=== PATIENT | male | born 1945 | race Caucasian/White ===

== ENCOUNTER 2016-12-18 11:30 | Inpatient (IN) | payer MEDICARE, BC ==
[~2016-12-18] VITALS: Ht 177.8 cm; Wt 78.0 kg
[2016-12-25] VITALS (38 sets, daily range): BP systolic 102–147; BP diastolic 57–76; PULSE 56–98; RESP 11–20; Ht 177.8 cm; Wt 78.0 kg
[2016-12-25] MEDS ORDERED: ROCURONIUM 50 MG INJ ONE (07:00)
[2016-12-25] MEDS ORDERED: LIDOCAINE 2% (SDV) 5 ML INJ ONE (07:00)
[2016-12-25] MEDS ORDERED: PROPOFOL 200 MG INJ ONE (07:00)
[2016-12-25] MEDS ORDERED: SUCCINYLCHOLINE CHLORIDE 100 MG/5 ML SYG IV ONE (07:00)
[2016-12-25] MEDS ORDERED: SURGIFOAM POWDER 1 GM KIT ONE (09:48)
[2016-12-25] MEDS ORDERED: BUPIVACAINE 0.25% (MPF) 30 ML INJ ONE (09:48)
[2016-12-25] MEDS ORDERED: POLYMYXIN/BACITRACIN 1L IRRIG ONE ×2 (09:48→11:13)
[2016-12-25] MEDS ORDERED: THROMBIN 5000 UNIT VIAL ONE ×2 (09:48→12:49)
[2016-12-25] MEDS ORDERED: ESOM20CA PO (10:06)
[2016-12-25] MEDS ORDERED: MORP15TA92 PO (10:06)
[2016-12-25] MEDS ORDERED: BIMA2.5D BOTH EYES (10:07)
[2016-12-25] MEDS ORDERED: CALC500T11 PO (10:08)
[2016-12-25] MEDS ORDERED: OMEG1CAP31 PO (10:08)
[2016-12-25] MEDS ORDERED: ALFU10TA2 PO (10:09)
--- NOTE | 2016-12-25 10:18 | HPN ---
Date/Time of Note Date/Time of Note DATE: 12/25/16 TIME: 10:18 Interval H&P Admission Note Pt. seen H&P reviewed: No system changes SAMANTHA MATTHEWS PA-C Dec 25, 2016 10:18
[2016-12-25] MEDS ORDERED: DIPHENHYDRAMINE 50 MG INJ IV PRN ×2 (10:30→15:00)
[2016-12-25] MEDS ORDERED: ZOLPIDEM 5 MG TAB PO PRN (10:30)
[2016-12-25] MEDS ORDERED: morphine 1 MG/ML 30 ML (PCA) IV SCH (10:30)
[2016-12-25] MEDS ORDERED: ONDANSETRON 4 MG INJ IV PRN ×2 (10:30→15:00)
[2016-12-25] MEDS ORDERED: morphine 2 MG INJ IV PRN (10:30)
[2016-12-25] MEDS ORDERED: ACETAMINOPHEN 325 MG TAB PO PRN (10:30)
[2016-12-25] MEDS ORDERED: NALOXONE (0.4 MG/ML) INJ IV PRN (10:30)
[2016-12-25] MEDS ORDERED: CEPASTAT LOZENGE MT PRN (10:30)
[2016-12-25] MEDS ORDERED: BISACODYL 10 MG SUPP PR PRN (10:30)
[2016-12-25] MEDS ORDERED: AL HYDROX/MG HYDROX/SIMETH 30 ML CUP PO PRN (10:30)
[2016-12-25] MEDS ORDERED: HEPARIN 1000 UNITS/ML 10 ML INJ ONE (10:46)
[2016-12-25] MEDS ORDERED: CEFAZOLIN 1 GM INJ ONE ×2 (10:47→11:21)
[2016-12-25] MEDS ORDERED: MIDAZOLAM 1 MG/ML 2 ML INJ ONE (11:05)
[2016-12-25] MEDS: CEFAZOLIN 1 GM/50 ML (PMX) 50 ML IVPB SCH ×2 (11:15→18:39)
[2016-12-25] MEDS ORDERED: BUPIVACAINE 0.25%/EPI (SDV) 30 ML INJ ONE (11:24)
[2016-12-25] MEDS ORDERED: FAMOTIDINE 20 MG INJ ONE (11:39)
[2016-12-25] MEDS ORDERED: ONDANSETRON 4 MG INJ ONE (11:39)
[2016-12-25] MEDS ORDERED: DEXAMETHASONE 4 MG/ML 1 ML INJ ONE (11:39)
[2016-12-25] MEDS ORDERED: BUPIVACAINE 0.25%/EPI (SDV) 30 ML INJ INJ ONE (11:49)
[2016-12-25] MEDS ORDERED: POLYMYXIN/BACITRACIN 1L IRRIG IRR ONE (11:49)
[2016-12-25] MEDS ORDERED: THROMBIN 5000 UNIT VIAL TOP ONE (11:49)
[2016-12-25] MEDS ORDERED: GELATIN SIZE 100 SPONGE ONE (12:48)
--- NOTE | 2016-12-25 13:15 | RADRPT ---
PROCEDURE: Intraoperative fluoroscopy CLINICAL INDICATION: L3-S1 decompression TECHNIQUE: Two fluoroscopic images of the lumbar spine were obtained by the operating surgeon. To con fluoroscopic time: 7.6 seconds COMPARISON: None. FINDINGS: Two lateral views of the lower lumbar spine obtained in the operating room are provided. Assuming t here are 5 mobile lumbar-type vertebra, instruments overlie the posterior elements at L4 and L5. Th ere are degenerative changes. IMPRESSION: Intraoperative fluoroscopy, as described. RPTAT: HCTS Physician Estrella Date Time Electronically viewed and signed by Physician Estrella on 12/25/2016 13:14 CS/
[2016-12-25] MEDS: morphine (ER) 30 MG TAB PO SCH ×2 (14:00→20:52)
[2016-12-25] MEDS ORDERED: ACETAMINOPHEN 1000MG/100ML IV 100 ML ONE (14:37)
[2016-12-25] MEDS ORDERED: SUGAMMADEX SODIUM 200 MG/2 ML VIAL IV ONE (14:37)
--- NOTE | 2016-12-25 14:53 | OPR ---
Date/Time of Note Date/Time of Note DATE: 12/25/16 TIME: 14:51 Operative Report Preoperative Diagnosis Lumbar stenosis Postoperative Diagnosis Lumbar stenosis Operation/Procedure Performed Multilevel lumbar decompression Co-Surgeon: ALVINA AGEE MD assistant technician: SAMANTHA MATTHEWS PA-C Anesthesia Type: general Estimated Blood Loss: 150 - 200 ml's Transfusion Required: no Specimens Disc Grafts/Implants: none Complications: no ALVINA AGEE MD Dec 25, 2016 14:53
[2016-12-25] MEDS ORDERED: METOCLOPRAMIDE 10 MG INJ IV PRN (15:00)
[2016-12-25] MEDS ORDERED: MEPERIDINE 25 MG INJ IV PRN (15:00)
[2016-12-25] MEDS ORDERED: hydrALAzine 20 MG INJ IV PRN (15:00)
[2016-12-25] MEDS ORDERED: HYDROmorphONE (0.2 MG/ML) 10ML SYG IV PRN ×2 (15:00)
[2016-12-25] MEDS: morphine 1 MG/ML 30 ML (PCA) IV SCH (15:26)
[2016-12-25] MEDS: PANTOPRAZOLE (EC) 40 MG TAB PO SCH (18:39)
[2016-12-25] MEDS: D5W-0.45 NACL + KCL 20 MEQ 1,000 ML IV SCH ×2 (18:39→20:53)
[2016-12-25] MEDS: CYCLOBENZAPRINE 10 MG TAB PO PRN (20:52)
[2016-12-25] MEDS: DOCUSATE SODIUM 100 MG CAP PO SCH (20:52)
[2016-12-25] MEDS: LATANOPROST 0.005% 2.5 ML OPH BOTH EYES SCH (21:00)
[2016-12-26 00:15] VITALS: BP 109/58; RESP 18
--- NOTE | 2016-12-26 01:22 | CONS ---
DATE OF ADMISSION: 12/25/2016 DATE OF CONSULTATION: 12/25/2016 Postop medical consultative note Thank you very much, Dr. Mars, for allowing me to evaluate the above patient, this 71-year-old male, who underwent lumbar decompression and diskectomy revision earlier today. Historical events: As you well know, this patient did undergo a lumbar back surgery in May 2015 but because of recurrence of pain and related sciatica, left greater than right lower extremity, elected to proceed with surgical intervention. Of note is also he had symptoms compatible with cauda equina syndrome. Presently in recovery he is comfortable without cough, wheezing, shortness of breath, nausea, vomiting, abdominal or chest pain. PAST MEDICAL HISTORY: Includes: 1. Mae's esophagus. 2. History of thrombocytopenia. 3. Hyperlipidemia. 4. GERD. 5. History of mitral valve prolapse. 6. History of glucose intolerance. 7. 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 8. History of BPH. 9. Erectile dysfunction. MEDICATION: 1. Morphine release 1 tablet t.i.d. 2. Alfuzosin ER 10 mg per day. 3. MiraLAX daily. 4. Zometa every 3 months. 5. Cialis 5 mg p.r.n. 6. Fish oil 1 cap t.i.d. 7. Calcium with D daily. 8. Nexium 40 mg per day. ALLERGIES: BACTRIM. 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 Has 4 adult children. Lives in [place]. Prior smoker. Drinks a beer a day. PHYSICAL EXAMINATION: GENERAL APPEARANCE: [place] male no acute distress. VITAL SIGNS: BP 122/80, pulse 70, respirations of 20. He was afebrile. HEENT: Eyes, extraocular muscles were full. Nose, mouth, and throat, normal. NECK: Supple. There was no jugular venous distention, thyroid enlargement, adenopathy. Carotids 2+. No bruits. LUNGS: Clear. HEART: Rhythm regular. No murmur. No 3rd or 4th sound. ABDOMEN: Nontender. Liver and spleen were not palpable. No mass or tenderness were noted. EXTREMITIES: No edema. Calves nontender. Pulses 2+. NEUROLOGIC: No lateralizing motor weakness. IMPRESSION: 1. Stable postop lumbar back surgery. 2. History of myeloma, doing well post stem cell transplant. 3. History of gastroesophageal reflux disease, will continue PPI. 4. Prostatism. Will not resume Alfuzosin until catheter removed. 5. Will follow with you daily and observe for signs and symptoms of thromboembolic disease. Dictated By: El Armas MD /agustin/anais /Document#: [id number]
[2016-12-26] MEDS: CEFAZOLIN 1 GM/50 ML (PMX) 50 ML IVPB SCH (02:09)
[2016-12-26] MEDS: PANTOPRAZOLE (EC) 40 MG TAB PO SCH (05:06)
[2016-12-26] MEDS: morphine (ER) 30 MG TAB PO SCH ×3 (05:07→21:32)
[2016-12-26 05:37] LABS: BASOPHILS % 0.1 % (0.0-2.0); HEMATOCRIT 31.4 % (42.0-52.0); HEMOGLOBIN 10.5 g/dl (14.0-18.0); LYMPHOCYTES # 0.9 10^3/ul (0.8-2.9); LYMPHOCYTES % 11.4 % (15.0-51.0); MEAN CORPUSCULAR HEMOGLOBIN 32.2 pg (29.0-33.0); MEAN CORPUSCULAR HGB CONC 33.4 g/dl (32.0-37.0); MEAN CORPUSCULAR VOLUME 96.3 fl (82.0-101.0); MONOCYTE # 0.5 10^3/ul (0.3-0.9); MONOCYTES % 5.6 % (0.0-11.0); NEUTROPHILS % 82.4 % (39.0-77.0); PLATELET COUNT 131 10^3/UL (140-415); RED BLOOD COUNT 3.26 10^6/ul (4.70-6.10); RED CELL DISTRIBUTION WIDTH 12.9 % (11.5-14.5); WHITE BLOOD COUNT 8.2 10^3/ul (4.8-10.8)
[2016-12-26 05:55] LABS: CALCIUM 8.5 mg/dl (8.4-10.2); CREATININE 0.73 mg/dl (0.61-1.24)
[2016-12-26 07:37] VITALS: BP 110/57; RESP 18
--- NOTE | 2016-12-26 08:23 | CONS ---
Date/Time of Note Date/Time of Note DATE: 12/26/16 TIME: 08:20 Assessment/Plan Assessment/Plan Additional Assessment/Plan 1. The patient is doing well postop lumbar laminectomy. 2. Patient has history of GERD he is presently asymptomatic. 3. Patient has history of myeloma this is quiescent and a slight reduction in platelet count is noted, with patient having history of the same. 4. History of BPH will observe for difficulty voiding once Mock catheter is removed. 5. Laboratory studies were reviewed. Consultation Date/Type/Reason Admit Date/Time Dec 25, 2016 at 08:33 Initial Consult Date 24 HR Interval Summary Free Text/Dictation The patient has noted only mild low back pain without radicular leg pain. He denies cough shortness of breath chest pain nausea vomiting or abdominal pain. He has he has minimal discomfort from needed Mock catheter. Exam/Review of Systems Vital Signs Vitals Vital Signs Date Time Temp Pulse Resp B/P Pulse Ox O2 Delivery O2 Flow Rate FiO2 12/26/16 07:37 98.1 62 18 110/57 100 12/25/16 23:59 Nasal Cannula 12/25/16 15:50 2.0 Intake and Output 12/25/16 12/25/16 12/26/16 15:00 23:00 07:00 Intake Total 2120 ml 750 ml Output Total 615 ml 2020 ml Balance 1505 ml -1270 ml Exam Neck: No jvd Respiratory: clear to auscultation Cardiovascular: regular rate and rhythm Gastrointestinal: soft Extremities: No edema, No tenderness (bilateral) Results Result Diagram: 12/26/16 0453 12/26/16 0454 Results 24 hrs Laboratory Tests Test 12/26/16 04:53 12/26/16 04:54 White Blood Count 8.2 Red Blood Count 3.26 L Hemoglobin 10.5 L Hematocrit 31.4 L Mean Corpuscular Volume 96.3 Mean Corpuscular Hemoglobin 32.2 Mean Corpuscular Hemoglobin Concent 33.4 Red Cell Distribution Width 12.9 Platelet Count 131 L Mean Platelet Volume 10.0 Neutrophils % 82.4 H Lymphocytes % 11.4 L Monocytes % 5.6 Eosinophils % 0.0 Basophils % 0.1 Nucleated Red Blood Cells % 0.0 Neutrophils # (Manual) 6.8 Lymphocytes # 0.9 Monocytes # 0.5 Eosinophils # 0.0 Basophils # 0.0 Nucleated Red Blood Cells # 0.0 Sodium Level 137 Potassium Level 4.0 Chloride Level 108 Carbon Dioxide Level 25 Anion Gap 8 Blood Urea Nitrogen 11 Creatinine 0.73 Glucose Level 120 Calcium Level 8.5 Magnesium Level 2.0 Medications Medications Current Medications Potassium Chloride/Dextrose/ Sod Cl (D5-1/2ns + KCl 20 Meq) 1,000 ml @ 100 mls/ hr Q10H IV Last administered on 12/25/16 20:53; Admin Dose 100 MLS/HR; Start 12/25/16 at 10:18 Morphine Sulfate (morphine) 1 mg Q1H PRN IV BREAKTHROUGH PAIN; Start 12/25/16 at 10:30 Ondansetron HCl (Zofran Inj) 4 mg Q6H PRN IV NAUSEA AND/OR VOMITING; Start at 10:30 Bisacodyl (Dulcolax Supp) 10 mg DAILY PRN OR CONSTIPATION; Start 12/25/16 at 10 :30 Docusate Sodium (Colace) 100 mg BID PO Last administered on 12/25/16 20:52; Admin Dose 100 MG; Start 12/25/16 at 21:00 Al Hydrox/Mg Hydrox/Simethicone (Mag-Al Plus) 15 ml Q6H PRN PO CONSTIPATION/ DYSPEPSIA; Start 12/25/16 at 10:30 Acetaminophen (Tylenol Tab) 650 mg Q4H PRN PO TUTTLE OR TEMP GREATER THAN 101.3F; Start 12/25/16 at 10:30 Cyclobenzaprine HCl (Flexeril) 10 mg TID PRN PO MUSCLE SPASMS Last administered on 12/25/16 20:52; Admin Dose 10 MG; Start 12/25/16 at 10:30 Phenol (Cepastat Lozenge) 1 lozenge PRN PRN MT SORE THROAT; Start 12/25/16 at 10:30 Diphenhydramine HCl (Benadryl) 25 mg Q6H PRN IV ITCHING; Start 12/25/16 at 10: 30 Naloxone HCl (Narcan) 0.2 mg Q2M PRN IV RR 8 BREATHS/MIN OR LESS; Start at 10:30 Miscellaneous Information 1. Hold ADMINISTRATIVE OFFICER at 1,000... ADMINISTRATIVE OFFICER IV ; Start 12/25/16 at 10: 30 Morphine Sulfate (morphine) ADMINISTRATIVE OFFICER to be started in PACU Q4PCA IV Last administered on 12/25/16 15:26; Admin Dose 30 MG; Start 12/25/16 at 10:30; Stop 12/26/16 at 10:00 Morphine Sulfate (Ms Contin (Er)) 30 mg Q8 PO Last administered on 12/26/16 05 :07; Admin Dose 30 MG; Start 12/25/16 at 14:00 Latanoprost (Xalatan) 1 drop QHS BOTH EYES ; Start 12/25/16 at 21:00 Calcium Carbonate (Oyster Shell Calcium) 1.25 gm DAILY PO ; Start 12/26/16 at 09 :00 Pantoprazole (Protonix Tab) 40 mg DAILY@06 PO Last administered on 12/26/16 05 :06; Admin Dose 40 MG; Start 12/25/16 at 18:00 Polyethylene Glycol (Miralax) 17 gm DAILY PO ; Start 12/26/16 at 09:00 XENIA GUAN MD Dec 26, 2016 08:23
[2016-12-26] MEDS: DOCUSATE SODIUM 100 MG CAP PO SCH ×2 (08:39→21:32)
[2016-12-26] MEDS: CALCIUM CARBONATE 1.25 GM TAB PO SCH (08:39)
[2016-12-26] MEDS: POLYETHYLENE GLYCOL 17 GM PACKET PO SCH (08:39)
[2016-12-26] MEDS: D5W-0.45 NACL + KCL 20 MEQ 1,000 ML IV SCH ×2 (08:40→18:25)
[2016-12-26] MEDS: morphine 1 MG/ML 30 ML (PCA) IV SCH (09:50)
--- NOTE | 2016-12-26 11:37 | PN ---
Date/Time of Note Date/Time of Note DATE: 12/26/16 TIME: 11:36 Assessment/Plan Lines/Catheters IV Catheter Type (from Nrsg): Peripheral IV Mock in Place (from Nrsg): Yes Assessment/Plan Assessment/Plan pod #1 s/p revision lumbar decompression cont current protocol Subjective 24 Hr Interval Summary improved leg pain Exam/Review of Systems Vital Signs Vitals Vital Signs Date Time Temp Pulse Resp B/P Pulse Ox O2 Delivery O2 Flow Rate FiO2 12/26/16 08:00 Nasal Cannula 12/26/16 07:37 98.1 62 18 110/57 100 12/25/16 15:50 2.0 Intake and Output 12/25/16 12/25/16 12/26/16 15:00 23:00 07:00 Intake Total 2120 ml 750 ml Output Total 615 ml 2020 ml Balance 1505 ml -1270 ml Exam Free Text/Dictation neuro intact Results Result Diagram: 12/26/16 0453 12/26/16 0454 ALVINA AGEE MD Dec 26, 2016 11:37
[2016-12-26] MEDS: CYCLOBENZAPRINE 10 MG TAB PO PRN (16:20)
[2016-12-26 16:42] VITALS: BP 131/62; RESP 18
[2016-12-26 20:29] VITALS: BP 119/60; RESP 20
[2016-12-26] MEDS: LATANOPROST 0.005% 2.5 ML OPH BOTH EYES SCH (22:38)
[2016-12-27] MEDS: CYCLOBENZAPRINE 10 MG TAB PO PRN (00:28)
[2016-12-27] MEDS: D5W-0.45 NACL + KCL 20 MEQ 1,000 ML IV SCH ×2 (02:18→05:50)
[2016-12-27 02:52] VITALS: BP 110/60; RESP 20
[2016-12-27 05:20] LABS: BASOPHILS % 0.3 % (0.0-2.0); EOSINOPHILS % 0.1 % (0.0-7.0); HEMATOCRIT 32.4 % (42.0-52.0); HEMOGLOBIN 10.6 g/dl (14.0-18.0); LYMPHOCYTES # 1.3 10^3/ul (0.8-2.9); MEAN CORPUSCULAR HEMOGLOBIN 32.4 pg (29.0-33.0); MEAN CORPUSCULAR HGB CONC 32.7 g/dl (32.0-37.0); MEAN CORPUSCULAR VOLUME 99.1 fl (82.0-101.0); MEAN PLATELET VOLUME 9.7 fl (7.4-10.4); MONOCYTE # 0.6 10^3/ul (0.3-0.9); MONOCYTES % 7.1 % (0.0-11.0); NEUTROPHILS % 75.1 % (39.0-77.0); PLATELET COUNT 131 10^3/UL (140-415); RED BLOOD COUNT 3.27 10^6/ul (4.70-6.10); RED CELL DISTRIBUTION WIDTH 13.4 % (11.5-14.5); WHITE BLOOD COUNT 7.7 10^3/ul (4.8-10.8)
[2016-12-27 05:32] LABS: CALCIUM 8.2 mg/dl (8.4-10.2); CREATININE 0.76 mg/dl (0.61-1.24); MAGNESIUM 1.9 mg/dl (1.7-2.5); POTASSIUM 4.6 mmol/L (3.5-5.1)
[2016-12-27] MEDS: morphine (ER) 30 MG TAB PO SCH ×2 (05:51→14:05)
[2016-12-27] MEDS: PANTOPRAZOLE (EC) 40 MG TAB PO SCH (05:51)
--- NOTE | 2016-12-27 07:52 | CONS ---
Date/Time of Note Date/Time of Note DATE: 12/27/16 TIME: 07:49 Assessment/Plan Assessment/Plan Additional Assessment/Plan 1. The patient is doing well postop lumbar laminectomy. 2. Patient has history of GERD he is presently asymptomatic. 3. History of BPH will observe for difficulty voiding once Gurrola catheter is removed. 4. Laboratory studies were reviewed and rev with ortho, re:removing today and potential dc Consultation Date/Type/Reason Admit Date/Time Dec 25, 2016 at 08:33 Detailed Summary Respiratory: No shortness of breath Cardiovascular: No chest pain, No lightheadedness Gastrointestinal: no complaints Genitourinary: other (gurrola in place) Musculoskeletal: back pain (is mild ) Exam/Review of Systems Vital Signs Vitals Vital Signs Date Time Temp Pulse Resp B/P Pulse Ox O2 Delivery O2 Flow Rate FiO2 12/27/16 02:52 99.2 96 20 110/60 93 12/26/16 20:00 Nasal Cannula 2.0 Intake and Output 12/26/16 12/26/16 12/27/16 15:00 23:00 07:00 Intake Total 1000 ml 2080 ml 950 ml Output Total 1515 ml 5 ml Balance 1000 ml 565 ml 945 ml Exam Neck: No jvd Respiratory: clear to auscultation Cardiovascular: regular rate and rhythm Gastrointestinal: soft Extremities: No edema (and no calf tend bilat) Results Result Diagram: 12/27/16 0438 12/27/16 0438 Results 24 hrs Laboratory Tests Test 12/27/16 04:38 White Blood Count 7.7 Red Blood Count 3.27 L Hemoglobin 10.6 L Hematocrit 32.4 L Mean Corpuscular Volume 99.1 Mean Corpuscular Hemoglobin 32.4 Mean Corpuscular Hemoglobin Concent 32.7 Red Cell Distribution Width 13.4 Platelet Count 131 L Mean Platelet Volume 9.7 Neutrophils % 75.1 Lymphocytes % 17.0 Monocytes % 7.1 Eosinophils % 0.1 Basophils % 0.3 Nucleated Red Blood Cells % 0.0 Neutrophils # (Manual) 5.8 Lymphocytes # 1.3 Monocytes # 0.6 Eosinophils # 0.0 Basophils # 0.0 Nucleated Red Blood Cells # 0.0 Sodium Level 136 Potassium Level 4.6 Chloride Level 99 Carbon Dioxide Level 29 Anion Gap 13 Blood Urea Nitrogen 12 Creatinine 0.76 Glucose Level 115 Calcium Level 8.2 L Magnesium Level 1.9 Medications Medications Current Medications Potassium Chloride/Dextrose/ Sod Cl (D5-1/2ns + KCl 20 Meq) 1,000 ml @ 100 mls/ hr Q10H IV Last administered on 12/27/16 05:50; Admin Dose 100 MLS/HR; Start 12/25/16 at 10:18 Morphine Sulfate (morphine) 1 mg Q1H PRN IV BREAKTHROUGH PAIN; Start 12/25/16 at 10:30 Ondansetron HCl (Zofran Inj) 4 mg Q6H PRN IV NAUSEA AND/OR VOMITING; Start at 10:30 Bisacodyl (Dulcolax Supp) 10 mg DAILY PRN SD CONSTIPATION; Start 12/25/16 at 10 :30 Docusate Sodium (Colace) 100 mg BID PO Last administered on 12/26/16 21:32; Admin Dose 100 MG; Start 12/25/16 at 21:00 Al Hydrox/Mg Hydrox/Simethicone (Mag-Al Plus) 15 ml Q6H PRN PO CONSTIPATION/ DYSPEPSIA; Start 12/25/16 at 10:30 Acetaminophen (Tylenol Tab) 650 mg Q4H PRN PO TUTTLE OR TEMP GREATER THAN 101.3F; Start 12/25/16 at 10:30 Cyclobenzaprine HCl (Flexeril) 10 mg TID PRN PO MUSCLE SPASMS Last administered on 12/27/16 00:28; Admin Dose 10 MG; Start 12/25/16 at 10:30 Phenol (Cepastat Lozenge) 1 lozenge PRN PRN MT SORE THROAT; Start 12/25/16 at 10:30 Diphenhydramine HCl (Benadryl) 25 mg Q6H PRN IV ITCHING; Start 12/25/16 at 10: 30 Naloxone HCl (Narcan) 0.2 mg Q2M PRN IV RR 8 BREATHS/MIN OR LESS; Start at 10:30 Miscellaneous Information 1. Hold HOME HEALTH NURSE LICENSED PRACTICAL at 1,000... HOME HEALTH NURSE LICENSED PRACTICAL IV ; Start 12/25/16 at 10: 30 Morphine Sulfate (Ms Contin (Er)) 30 mg Q8 PO Last administered on 12/27/16 05 :51; Admin Dose 30 MG; Start 12/25/16 at 14:00 Latanoprost (Xalatan) 1 drop QHS BOTH EYES Last administered on 12/26/16 22:38 ; Admin Dose 1 DROP; Start 12/25/16 at 21:00 Calcium Carbonate (Oyster Shell Calcium) 1.25 gm DAILY PO Last administered on 12/26/16 08:39; Admin Dose 1.25 GM; Start 12/26/16 at 09:00 Pantoprazole (Protonix Tab) 40 mg DAILY@06 PO Last administered on 12/27/16 05 :51; Admin Dose 40 MG; Start 12/25/16 at 18:00 Polyethylene Glycol (Miralax) 17 gm DAILY PO Last administered on 12/26/16 08: 39; Admin Dose 17 GM; Start 12/26/16 at 09:00 XENIA GUAN MD Dec 27, 2016 07:52
--- NOTE | 2016-12-27 07:58 | PN ---
Date/Time of Note Date/Time of Note DATE: 12/27/16 TIME: 07:57 Assessment/Plan Lines/Catheters IV Catheter Type (from Nrsg): Peripheral IV Mock in Place (from Nrsg): Yes Assessment/Plan Assessment/Plan The patient is postoperative day 2 status post lumbar decompression. He is doing well. His catheter and ENGINE MANAGER will be discontinued today. If he is able to void he will be discharged today. Subjective 24 Hr Interval Summary The patient is doing well with minimal back pain Exam/Review of Systems Vital Signs Vitals Vital Signs Date Time Temp Pulse Resp B/P Pulse Ox O2 Delivery O2 Flow Rate FiO2 12/27/16 02:52 99.2 96 20 110/60 93 12/26/16 20:00 Nasal Cannula 2.0 Intake and Output 12/26/16 12/26/16 12/27/16 15:00 23:00 07:00 Intake Total 1000 ml 2080 ml 950 ml Output Total 1515 ml 5 ml Balance 1000 ml 565 ml 945 ml Exam Free Text/Dictation Incisions are clean and dry. He is neurologically intact. Results Result Diagram: 12/27/16 0438 12/27/16 0438 ALVINA AGEE MD Dec 27, 2016 07:58
[2016-12-27 08:06] VITALS: BP 115/57; RESP 18
[2016-12-27] MEDS: DOCUSATE SODIUM 100 MG CAP PO SCH (09:17)
[2016-12-27] MEDS: CALCIUM CARBONATE 1.25 GM TAB PO SCH (09:17)
[2016-12-27] MEDS: POLYETHYLENE GLYCOL 17 GM PACKET PO SCH (09:17)
[2016-12-27 14:57] VITALS: BP 117/62; RESP 18
--- NOTE | 2016-12-28 09:12 | DS ---
Date/Time of Note Date/Time of Note DATE: 12/28/16 TIME: 09:11 Discharge Summary Admission/Discharge Info Admit Date/Time Dec 25, 2016 at 08:33 Discharge Date/Time Dec 27, 2016 at 16:30 Discharge Diagnosis Status post lumbar decompression Patient Condition: Good Procedures Lumbar decompression Hx of Present Illness Back and leg pain. History of previous spinal surgery. Residual spinal stenosis Hospital Course The patient was admitted to the orthopedic young after undergoing lumbar revision decompression. His postoperative course was uncomplicated. By postoperative day 2 he was deemed stable for discharge with follow-up arranged with the undersigned Home Meds Reported Medications Alfuzosin Hcl* (Alfuzosin Hcl*) 10 Mg Tab.er.24h, 10 MG PO DAILY, #30 TAB.SA 12/25/16 [place]-3/Dha/Epa/Fish Oil (FISH OIL 1,000 MG SOFTGEL) 1 Each Capsule, 1 EACH PO DAILY, CAP 12/25/16 Calcium Carbonate (Oysco-500) 500 Mg Tablet, 500 MG PO DAILY, TAB 12/25/16 Bimatoprost* (Lumigan*) 0.01%-2.5 Ml Opht Drops, 1 DROP BOTH EYES HS, EA 12/25/16 Esomeprazole Mag Trihydrate (Nexium) 20 Mg Capsule.dr, 20 MG PO DAILY, #30 CAP 12/25/16 Morphine Sulfate* (Ms Contin*) 15 Mg Tablet.sa, 30 MG PO TID Y for PAIN, TAB.SA 12/25/16 Primary Care Provider Not On Staff Doctor ALVINA AGEE MD Dec 28, 2016 09:12
--- NOTE | 2017-01-02 14:30 | OPR ---
DATE OF OPERATION: 12/25/2016 PREOPERATIVE DIAGNOSES: 1. Previous L3-4, L4-5, L5-S1 decompression with residual stenosis at L3-4, L4-5, L5-S1. 2. Left L3-4 disc extrusion. 3. Radiculopathy. POSTOPERATIVE DIAGNOSES: 1. Previous L3-4, L4-5, L5-S1 decompression with residual stenosis at L3-4, L4-5, L5-S1. 2. Left L3-4 disc extrusion. 3. Radiculopathy. 4. Left pars fracture at L3. PROCEDURES: 1. Revision decompression L3-4 and L4-5 bilaterally and L5-S1 on the left for stenosis. 2. Left L3-4 microdiskectomy. 3. Use of operative microscope. 4. Use of C-arm fluoroscopy with interpretation without radiologist present. 5. Intraoperative neuro monitoring (3 hours). 6. Deep specimen sent for cultures. PRIMARY SURGEON: Dr. Yovany Mars. WIRE ROPE FABRICATION SUPERVISOR: Sangita Ramirez PA-C. NEED FOR LEGISLATIVE DIRECTOR: Senior Information Systems Architect was required for retraction of neurovascular elements. FINDINGS: Neuro monitoring at the start of the case revealed left L3 amplitude down 40 percent, left L4 amplitude down 30 percent, left L5 amplitude down 20 percent ,left S1 amplitude down 50 percent, right L5 amplitude down 40 percent, right S1 amplitude down 20 percent. At the end of the case nerve signal returned to normal. The patient had severe residual stenosis at L3-4, L4-5, and L5-S1 on the left with disc herniation at L3-4. Fluid collection is identified and sent off for cultures. ESTIMATED BLOOD LOSS: 150 cc. DRAINS: None. SPECIMEN: Disc. COMPLICATIONS TO PROCEDURE: None. ANESTHESIOLOGIST: Dr. Salamanca. ANESTHESIA: General. INDICATION FOR PROCEDURE: This is a 71-year-old gentleman who had previously undergone lumbar decompression elsewhere. He had residual pain in the lower extremities, worse on the left. He had failed 3 additional nonoperative measures. Due to the severity of stenosis I recommend the above procedure. Preoperatively, I discussed risks, benefits, alternatives, he understood and wished to proceed. OPERATIVE PROCEDURE: The patient was identified in the preoperative holding area, given Ancef antibiotics in the operating room, where he was successfully placed under general anesthesia. Neuro monitoring leads were placed. Sequential compressive devices were applied. Mock catheter was introduced. Neuro monitoring was utilized during the procedure for 3 hours to include SSEP, MEP, and EMG. This was performed by [employer]. Start time was 11:45 a.m. closure time was 2:45 p.m. The patient was placed on the operating room table in prone position on Jackson frame. All bony prominences were well padded. The back was prepped draped in usual sterile fashion. Paraspinal musculature was injected with 0.25 percent Marcaine and epinephrine. The patient's previous incision was utilized, incising down to the dorsal fascia where the scar was. Identified the L2 spinous process as a landmark. I subperiostealy dissected the L2 lamina and was remaining of the L4 lamina. I dissected more distally out to the facet joints of L4-5 and L5-S1 bilaterally. Essentially found a fluid collection. This was within the cavity which I punctured and took the fluid and send this for cultures. This did not appear to be communicating with the CSF and did not appear to be a CSF leak. Grossly, this did not appear to be infected and looked just like serous fluid. Once I had exposed the area great care was performed in order to fully skeletonize and take the scar tissue off of the bone. This is a revision with altered feel and added at least 1.5 hours to the surgery. I was able to perform a revision central decompression at the L3-4 level. I performed bilateral revision decompression at L4-5. I performed a revision left decompression at L5-S1. I was able to decompress the L3, L4, L5 nerve roots bilaterally and the S1 nerve root on the left. Next, the microscope was brought in. My pediatric assistant retracted the neuro elements medially and identified the left L3-4 disc space where I made an annulotomy followed by discectomy to remove the extruded fragment as this was causing additional stenosis. Once this was completed, all nerve signals returned to normal. I irrigated the wound. I achieved hemostasis with bipolar cautery, Surgifoam, Gelfoam and thrombin. A timeout was performed and there was no leak of CSF. Nerve signal at this point were normal. I then take places a deep subfascial drain and closed the deep fascia with number 1 Vicryl stitch. I closed subcutaneous tissue with 2-0 Vicryl suture and then 4-0 Monocryl closure was then performed. Dermabond and sterile dressing was then applied. The patient was then awakened from anesthesia, and taken recovery in stable condition. Lap, sponge, and instrument counts correct times 2. There were no apparent complications during the procedure. The patient will be admitted to orthopedic young for routine postoperative care to include pain control, antibiotics and physical therapy. Dictated By: Yovany Mars MD /agustin/manuel /Document#: [id number] KENYON
== END 2016-12-27 16:30 | disposition home or self-care (01) | DRG 519 ==
LOC: EDSTATUS 11:30 → REC 12-25 08:33 → MS1 12-25 18:31
PROVIDERS: ADMIT Specialist; ATTEND Specialist
PROC: 01NB0ZZ Release Lumbar Nerve, Open Approach (ICD-10-PCS; 2016-12-25)
PROC: 0S9 Lower Joints, Drainage (ICD-10-PCS; 2016-12-25)
PROC: 4A11X4G Monitoring of Peripheral Nervous Electrical Activity, Intraoperative, External Approach (ICD-10-PCS; 2016-12-25)
PROC: 0SB20ZZ Excision of Lumbar Vertebral Disc, Open Approach (ICD-10-PCS; principal; 2016-12-25 11:30)
DX: M48.06 Spinal stenosis, lumbar region (principal); Z94.84 Stem cells transplant status; S32.039A Unspecified fracture of third lumbar vertebra, initial encounter for closed fracture; M51.16 Intervertebral disc disorders with radiculopathy, lumbar region; E78.5 Hyperlipidemia, unspecified; K21.9 Gastro-esophageal reflux disease without esophagitis; N40.0 Benign prostatic hyperplasia without lower urinary tract symptoms; X58.XXXA Exposure to other specified factors, initial encounter; Z85.79 Personal history of other malignant neoplasms of lymphoid, hematopoietic and related tissues; Z92.21 Personal history of antineoplastic chemotherapy; Z87.891 Personal history of nicotine dependence
CPT/HCPCS: 72100; 80048; 83735; 85025; 86850; 86900; 86901; 86920; 86999; 87070; 87075; 87086; 87102; 87116; 88304; 97116; 97162; J0131; J0690; J1100; J1170; J1644; J2250; J2270; J2405; J3010; J3480; J7999